=== PATIENT | female | born 2000 | race Caucasian/White ===

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

== ENCOUNTER 2022-11-03 16:22 | Emergency (ER) | payer BC ==
[2022-11-03] MEDS ORDERED: IBUPROFEN 400 MG TAB PO STA (17:43)
--- NOTE | 2022-11-03 18:29 | XR ---
EXAMINATION TYPE: XR ankle complete LT, XR foot complete LT DATE OF EXAM: 11/03/2022 6:02 PM INDICATION: Patient age:Female; 22 years old; Reason for study: fall; [facility]. COMPARISON: None TECHNIQUE: The left foot and ankle is imaged in frontal, lateral and oblique projections. FINDINGS: There is no evidence of acute osseous pathology. The joint spaces are well-preserved without evidenc e of subluxation or dislocation. Kager's fat pad is intact. Soft tissues are within normal limits. No radiopaque foreign bodies are identified. IMPRESSION: No evidence of acute fracture.
--- NOTE | 2022-11-03 18:30 | XR ---
EXAMINATION TYPE: XR knee complete LT DATE OF EXAM: 11/03/2022 6:02 PM INDICATION: Patient age:Female; 22 years old; Reason for study: fall; COMPARISON: None. TECHNIQUE: The Left knee(s) was examined in Frontal, lateral and oblique projections. FINDINGS: No evidence of any acute osseous pathology, soft tissue swelling, or joint effusion is no janell. IMPRESSION: 1. No acute osseous pathology.
--- NOTE | 2022-11-03 18:33 | ED ---
Fall HPI - General Chief Complaint: Fall Stated Complaint: numbness left leg Time Seen by Provider: 11/03/22 17:33 Source: patient Mode of arrival: ambulatory - History of Present Illness Initial Comments: Patient is a 22-year-old female who presents to the emergency department for numbness in left leg. Patient states she was sitting in a chair yesterday and got up not realizing her leg was asleep. Her leg gave out and she fell twisting her knee. Patient states ever since the incident she has numbness in her entire left lower extremity from her hip down to her toes. She also has some tingling from her knee down to her toes. Patient states she is unable to move her left ankle, foot, toes. She has been walking today but feels weakness in her foot. She has some mild pain in her knee. Patient denies headache she did not hit her head. She denies any weakness, pain, numbness, tingling in the upper extremities. No back pain. No loss of bowel or bladder function. - Related Data Allergies Allergy/AdvReac Type Severity Reaction Status Date / Time No Known Allergies Allergy Verified 11/03/22 16:54 Review of Systems ROS Statement: Those systems with pertinent positive or pertinent negative responses have been documented in the HPI. ROS Other: All systems not noted in ROS Statement are negative. Past Medical History Additional Past Medical History / Comment(s): Anorexia-hx of syncopal episodes. History of Any Multi-Drug Resistant Organisms: None Reported Past Surgical History: No Surgical Hx Reported Past Psychological History: Anxiety, Depression Smoking Status: Current every day smoker Past Alcohol Use History: None Reported Past Drug Use History: Marijuana General Exam Limitations: no limitations General appearance: alert, in no apparent distress Head exam: Present: atraumatic, normocephalic, normal inspection Eye exam: Present: normal appearance, PERRL, EOMI. Absent: scleral icterus, conjunctival injection, periorbital swelling Respiratory exam: Present: normal lung sounds bilaterally. Absent: respiratory distress, wheezes, rales, rhonchi, stridor Cardiovascular Exam: Present: regular rate, normal rhythm, normal heart sounds. Absent: systolic murmur, diastolic murmur, rubs, gallop, clicks Left Hip exam: Present: normal inspection, full ROM. Absent: tenderness, swelling Upper Leg exam: Present: normal inspection, full ROM. Absent: tenderness, swelling Knee exam: Present: normal inspection, full ROM. Absent: tenderness, swelling, abrasion, ecchymosis, deformity, crepitus, dislocation, erythema, effusion, pain/laxity with valgus, pain/laxity with varus Lower Leg exam: Present: normal inspection. Absent: full ROM, tenderness Ankle exam: Present: normal inspection, full ROM (patient can flex ankle but not extend. she cannot perform inversion or eversion). Absent: tenderness, swelling, abrasion, ecchymosis, deformity Foot/Toe exam: Present: normal inspection. Absent: full ROM ( cannot move any of her toes), tenderness, swelling Neurovascular tendon exam: Present: no vascular compromise, peroneal nerve deficit. Absent: sensory deficit, extremity cold to touch, pallor, foot drop Neurological exam: Present: alert, oriented X3, CN II-XII intact Psychiatric exam: Present: normal affect, normal mood Skin exam: Present: warm, dry, intact, normal color. Absent: rash Course Vital Signs 11/03/22 11/03/22 16:49 19:08 Temperature 98.3 F 97.8 F Pulse Rate 113 H 97 Respiratory 20 16 Rate Blood Pressure 132/77 124/79 O2 Sat by Pulse 100 99 Oximetry Medical Decision Making - Medical Decision Making Was pt. sent in by a medical professional or institution ([facility], DRUG ABUSE PROGRAM COORDINATOR, urgent care, hospital, or retirement...) When possible be specific @ -No Did you speak to anyone other than the patient for history (EMS, parent, family, police, friend...)? What history was obtained from this source @ -No Did you review nursing and triage notes (agree or disagree)? Why? @ -I reviewed and agree with nursing and triage notes Were old charts reviewed (outside hosp., previous admission, EMS record, old EKG, old radiological studies, urgent care reports/EKG's, retirement records)? Report findings @ -No old charts were reviewed Differential Diagnosis (chest pain, altered mental status, abdominal pain women, abdominal pain men, vaginal bleeding, weakness, fever, dyspnea, syncope, headache, dizziness, GI bleed, back pain, seizure, CVA, palpatations, mental health)? @ -Knee fracture, knee sprain, ankle sprain, ankle fracture, nerve injury, ligament injury. This list is not meant to be all-inclusive EKG interpreted by me (3pts min.). @ -As above X-rays interpreted by me (1pt min.). @ Yes, left knee, ankle, foot x-ray negative for acute process CT interpreted by me (1pt min.). @ -None done U/S interpreted by me (1pt. min.). @ -None done What testing was considered but not performed or refused? (CT, X-rays, U/S, labs)? Why? @ -None What meds were considered but not given or refused? Why? @ -None Did you discuss the management of the patient with other professionals (professionals i.e. , PA, DRUG ABUSE PROGRAM COORDINATOR, lab, RT, psych nurse, adoption social worker, rod welder, t eacher, parachute/combatant diver officer, telephonic nurse case manager)? Give summary @ -No Was smoking cessation discussed for >3mins.? @ -No Was critical care preformed (if so, how long)? @ -No Were there social determinants of health that impacted care today? How? (Homelessness, low income, unemployed, alcoholism, drug addiction, transportation, low edu. Level, literacy, decrease access to med. care, [facility], rehab)? @ -No Was there de-escalation of care discussed even if they declined (Discuss DNR or withdrawal of care, Hospice)? DNR status @ -No What co-morbidities impacted this encounter? (DM, HTN, Smoking, COPD, CAD, Cancer, CVA, ARF, Chemo, Hep., AIDS, mental health diagnosis, sleep apnea, morbid obesity)? @ -None Was patient admitted / discharged? Hospital course, mention meds given and ro gabo, prescriptions, significant lab abnormalities, going to OR and other pertinent info. @ -Patient presenting for numbness of lower extremity. The limb is warm and there is good skin tone. DP 2+. There is no tenderness. Patient is able to lift her leg up while laying in bed. She has full range of motion of the hip and knee. She was unable to perform extension, inversion, eversion of the ankle. She is unable to move her toes. Sensation is intact throughout the entire extremity including the foot and toes. X-rays are negative for fracture or other acute process. I did observe gait in the emergency department. She does swing the left leg a bit without any evidence of foot drop. Discussed concern for peritoneal nerve injury. Patient to follow-up with perinatal specialist for further evaluation and management possibly MRI Undiagnosed new problem with uncertain prognosis? @ -No Drug Therapy requiring intensive monitoring for toxicity (Heparin, Nitro, Insulin, Cardizem)? @ -No Were any procedures done? @ -No Diagnosis/symptom? @ -Numbness in left leg Acute, or Chronic, or Acute on Chronic? @ -Acute Uncomplicated (without systemic symptoms) or Complicated (systemic symptoms)? @ -Uncomplicated Side effects of treatment? @ -No Exacerbation, Progression, or Severe Exacerbation? @ -No Poses a threat to life or bodily function? How? (Chest pain, USA, SC, pneumonia, PE, COPD, DKA, ARF, appy, cholecystitis, CVA, Diverticulitis, Homicidal, Suicidal, threat to staff... and all critical care pts) @ -No Dr. Ferreira is my attending Disposition Clinical Impression: Fall, Numbness in left leg Disposition: HOME SELF-CARE Condition: Good Instructions (If sedation given, give patient instructions): Paresthesia (ED), Foot Drop (ED) Additional Instructions: Follow-up with perinatal specialist in 1-2 days. Return to the emergency department if you experience new, concerning, or worsening symptoms. Is patient prescribed a controlled substance at d/c from ED?: No Referrals: Macarena Lamb MD [Primary Care Provider] - 1-2 days Kyree Nicholas DO [Doctor of Osteopathic Medicine] - 1-2 days
[2022-11-03 19:10] VITALS: BP 124/79; PULSE 97; RESP 16; TEMP 97.8
== END 2022-11-03 19:10 | disposition home or self-care (01) ==
LOC: EC 16:22 → SUPCPDRO 16:22 → EC 19:10
DX: Z04.3 Encounter for examination and observation following other accident (principal); R20.0 Anesthesia of skin; F41.9 Anxiety disorder, unspecified; F32.A Depression, unspecified; F17.200 Nicotine dependence, unspecified, uncomplicated; F12.90 Cannabis use, unspecified, uncomplicated; W07.XXXA Fall from chair, initial encounter
CPT/HCPCS: 99283

== ENCOUNTER → 2024-01-03 | Outpatient (CLI) | payer BC ==
--- NOTE | 2024-01-03 18:26 | CT ---
EXAMINATION TYPE: CT sinus wo con DATE OF EXAM: 01/03/2024 COMPARISON: None HISTORY: CHRONIC MAXILLARY SINUSITIS. hx of nasal polyp removed x few years ago. CT DLP: 619 mGycm. Automated Exposure Control for Dose Reduction was Utilized. TECHNIQUE: CT scan of the sinuses is performed without contrast, axial images are obtained, coronal r eformatted images are also reviewed. FINDINGS: The nasal septum is slightly left of midline anteriorly and slightly right of midline posteriorly. Th ere is bilateral mild hans bullosa of the middle nasal turbinates posteriorly. There is a 8 x 1.5 x 1.5 cm left nasal polyp described below the left maxillary sinus is reduction. Right frontal sinus is clear; the right frontal recess is patent. Left frontal sinus is clear; the left frontal recess are clear. Right maxillary sinus is nearly entirely clear, except for mild mucosal thickening posteroinferomedia lly and the infundibulum is patent. Right anterior and middle ethmoid sinus air cells are clear, and the right hiatus semilunaris is patent. Left maxillary sinus shows moderate mucosal thickening at its base which is contiguous with soft tiss ue extending between the middle and inferior nasal turbinates and then posteriorly within the nasal c avity to a position adjacent to the expected position of the uvula. Request direct visualization of t his soft tissue density polyp which measures approximately 8 cm AP x 1.5 cm x 1.5 cm. The left infund ibulum and hiatus similar areas are widely patent. The left anterior and middle ethmoid sinus air shannan ls are clear. The sphenoid sinus shows mild mucosal thickening and/or fluid posteriorly, but is otherwise clear. Th e bilateral posterior ethmoid sinus air cells are clear and the bilateral sphenoethmoidal recesses ar e patent. The visualized mastoid sinus air cells and middle ear cavities are bilaterally clear. The osseous structures are negative. The visualized intracranial contents and extracranial soft tissues are unremarkable. IMPRESSION: 1. Large left nasal polyp extending from the left maxillary sinus to the oropharynx. 2. Scattered mild paranasal sinus mucosal thickening and/or fluid.
== END | disposition home or self-care (01) ==
LOC: RADCTMAIN 16:18
PROVIDERS: ATTEND Otolaryngology
DX: J34.89 Other specified disorders of nose and nasal sinuses (principal); J32.0 Chronic maxillary sinusitis; J33.9 Nasal polyp, unspecified
CPT/HCPCS: 70486

== ENCOUNTER 2024-03-05 07:00 | Day surgery (SDC) | payer BC ==
[2024-03-05] MEDS ORDERED: DEXAMETHASONE SOD PHOSPHATE 4 MG/ML 1 ML VIAL ONE (08:03)
[2024-03-05] MEDS ORDERED: ONDANSETRON 4 MG/2 ML VIAL ONE (08:03)
[2024-03-05] MEDS ORDERED: MIDAZOLAM 2 MG/2 ML VIAL ONE ×2 (08:04→08:26)
[2024-03-05] MEDS ORDERED: OXYMETAZOLINE 0.05% NASL SPRAY 1 SPRAY BOTTLE ONE ×2 (08:07)
[2024-03-05] MEDS ORDERED: LACTATED RINGERS 1,000 ML BAG ONE (08:20)
[2024-03-05] MEDS ORDERED: LIDOCAINE 1%-EPI 1:100,000 20 ML VIAL ONE (08:20)
[2024-03-05] MEDS ORDERED: BACITRACIN OINT 1 EACH PACKET TOPICAL ONE (08:20)
[2024-03-05] MEDS ORDERED: PROPOFOL 10 MG/ML 20 ML VIAL IV ONE (08:26)
[2024-03-05] MEDS ORDERED: fentaNYL (PF) 50 MCG/ML 2 ML AMP ONE ×2 (08:26→11:38)
[2024-03-05] MEDS ORDERED: PHENYLEPHRINE-0.9% NACL SYG 1,000 MCG/10 ML SYRINGE ONE (08:26)
[2024-03-05] MEDS ORDERED: SUCCINYLCHOLINE CHLORIDE 200 MG/10 ML VIAL IV ONE (08:26)
[2024-03-05] MEDS ORDERED: LIDOCAINE 1% INJ 10MG/ML (20 ML MDV) ONE (08:26)
[2024-03-05] MEDS ORDERED: HYDROmorphone 0.5 MG/0.5 ML SYRINGE ONE (10:13)
[2024-03-05] MEDS ORDERED: HYDROcodone/APAP 5-325MG 1 EACH TAB ONE (11:32)
--- NOTE | 2024-04-23 15:42 | OP ---
OPERATIVE REPORT DATE OF SERVICE : PREOPERATIVE DIAGNOSES: 1. Deviated nasal septum. 2. Chronic maxillary sinusitis. 3. Left antral choanal polyp. POSTOPERATIVE DIAGNOSES: 1. Deviated nasal septum. 2. Chronic maxillary sinusitis. 3. Left antral choanal polyp. PROCEDURE: 1. Septoplasty. 2. Bilateral endoscopic sinus surgery including bilateral maxillary antrostomy with removal of tissue from maxillary sinuses including left antral choanal polyp, bilateral partial ethmoidectomy, and bilateral hans bullectomies. ANESTHESIA: General. ESTIMATED BLOOD LOSS: Minimal. Less than 10 mL. COMPLICATIONS: None. INDICATIONS: This is a 23-year-old white female, nasal airway obstruction. She has a past history of antral choanal polyp on the left about 7 to 8 years ago. FINDINGS: Large left antral choanal polyp which started in the left maxillary sinus in dumbbell shape with a small interconnection in the already patent maxillary ostium and then back into the nasopharynx. This was removed grossly entirely. There were bilateral hans bullosa cells, overhanging bilateral ethmoid bulla. Therefore, these were opened also. Septum deviated to the left. PROCEDURE DETAILS: The patient was brought into the operative suite and placed in supine position. Patient underwent induction of general anesthesia with oral endotracheal intubation without difficulty. The patient was prepped and draped in usual aseptic fashion . 1% lidocaine with middle turbinates bilaterally. vasoconstrictive effect. A left hemitransfixion incision was made with mucoperichondrium bony cartilaginous junction was disarticulated were removed with Aron forceps and the inferior cartilaginous strip was removed leaving a hemitransfixion incision was closed with a running 4-0 chromic suture. endoscopic examination was performed bilaterally. The left middle turbinate was medialized. The hans bullosa cell was removed opened with the microdebrider thus performing hans bullectomy. The antral choanal polyp was readily visible endoscopically and was removed from the maxillary sinus with a Giraffe forceps under 30 degree endoscope through the already existing maxillary ostium and this was removed in continuity with the nasopharyngeal component. This was removed grossly entirely. The ethmoid was overhanging and therefore this was opened also with microdebrider. The maxillary ostium was enlarged minimally anteriorly, but it was already patent. Attention was then turned to the right where the procedure followed hans bullectomy and ethmoid bullectomy. The maxillary ostium was located with ballpoint probe. Infundibulotomy was performed followed by uncinectomy and the next antrostomy anterior and posterior fontanelle taking care . The maxillary sinus was explored and a small polyp was removed with Giraffe forceps. Once this was completed, a pledget of standard Nasopore nasal dressing was placed visualization bilaterally. The 4-0 nylon suture. The patient was then allowed to emerge from general anesthesia and tolerated the procedure well, transferred to postoperative recovery area in satisfactory condition. [id number] / IJN: [id number] /
== END 2024-03-05 13:00 ==
LOC: OR 07:00
PROVIDERS: ATTEND Otolaryngology
DX: J34.2 Deviated nasal septum (principal); J33.8 Other polyp of sinus; J34.89 Other specified disorders of nose and nasal sinuses; J34.3 Hypertrophy of nasal turbinates; J32.0 Chronic maxillary sinusitis; J33.0 Polyp of nasal cavity
CPT/HCPCS: 81025; 88300; 88304